=== PATIENT | female | born 1995 | race Caucasian/White ===

== ENCOUNTER 2017-01-21 21:22 | Emergency (ER) | payer OTHER ==
[~2017-01-21] VITALS: Ht 154.9 cm; Wt 95.3 kg
[~2017-01-21 21:22] MED LIST: BACTRIM DS 8001 TA1 PO; BENTYL10 MG PO; CARAFATE1 G1 PO; DEPO SHOT; DEPO-PROVER150 MG/M2 IM; FLAGYL500 MG PO; HYDROCODONE BIT1 T11 PO; MACROBID100 M1 PO; MOTRIN400 MG PO; NAPROSYN500 MG PO; TOPCARE OMEPRAZ20 MG PO; ULTRAM50 MG PO; VICODIN 5/500 505 MG PO; ZANTAC 150150 MG PO; ZANTAC150 MG PO; ZOFRAN ODT4 MG SL; ZOFRAN4 MG PO
[2017-01-21 22:05] LABS: HEMATOCRIT 38.3 % (37.0-47.0); HEMOGLOBIN 12.7 g/dl (12.0-16.0); LYMPH # 0.9 10*3/uL (1.3-4.4); LYMPH % 18.1 % (27.0-41.0); MEAN CELL VOLUME 79.1 fl (81.0-99.0); MEAN CORPUSCULAR HGB 26.2 pg (27.0-31.0); MEAN CORPUSCULAR HGB CONC 33.2 g/dl (33.0-37.0); MEAN PLATELET VOLUME 10.1 fl (9.6-12.3); MONO # 0.4 10*3/uL (0.1-1.0); NEUT # 3.8 10*3/uL (2.3-7.9); NEUT % 73.9 % (47.0-73.0); PLATELET COUNT AUTOMATED 217 10*3/uL (130-400); RED BLOOD COUNT 4.84 10*6/uL (4.10-5.10); RED CELL DISTRI WIDTH 14.8 % (0-14.5); WHITE BLOOD COUNT 5.1 10*3/uL (4.8-10.8)
[2017-01-21 22:10] LABS: BILIRUBIN NEGATIVE (NEGATIVE); BLOOD NEGATIVE (NEGATIVE); CLARITY CLEAR (CLEAR); COLOR YELLOW (YELLOW); GLUCOSE NEGATIVE (NEGATIVE); KETONE NEGATIVE (NEGATIVE); LEUKO ESTERASE NEGATIVE (NEGATIVE); NITRITE NEGATIVE (NEGATIVE); PH 5.5 (5.0-9.0); PROTEIN NEGATIVE (NEGATIVE); UROBILINOGEN 0.2 E.U./dl (0.2-1.0)
[2017-01-21 22:19] LABS: BUN 8 mg/dl (7-24); CARBON DIOXIDE 22 mmol/L (21-32); CHLORIDE 106 mmol/L (98-107); EST GLOM FILT AFRICAN AMERICAN > 60 ml/min; GLUCOSE 95 mg/dL (65-99); POTASSIUM 3.8 mmol/L (3.5-5.1); SODIUM 140 mmol/L (136-145)
[2017-01-21 22:24] LABS: B-hCG (QUALITATIVE) NEGATIVE (NEGATIVE)
[2017-01-21 22:28] LABS: URINE REFLEX COMMENT NO (NO)
[2017-01-22] MEDS ORDERED: LOMOTIL 0.025 M1 TA1 PO (00:06)
[2017-01-22] MEDS ORDERED: ZOFRAN ODT4 MG SL (00:06)
== END 2017-01-22 00:44 | disposition home or self-care (01) ==
LOC: ED 21:22
PROVIDERS: Emergency Medicine Emergency Medical Services
DX: K52.9 Noninfective gastroenteritis and colitis, unspecified (principal); K21.9 Gastro-esophageal reflux disease without esophagitis

== ENCOUNTER 2019-11-08 23:41 | Emergency (ER) | payer OTHER ==
[~2019-11-08 23:41] MED LIST changes: +LOMOTIL 0.025 M1 TA1 PO
== END 2019-11-09 00:08 | disposition left against medical advice (07) ==
LOC: ED 23:41
DX: R51 Headache (principal); R11.10 Vomiting, unspecified; Z53.21 Procedure and treatment not carried out due to patient leaving prior to being seen by health care provider

== ENCOUNTER 2021-04-28 23:51 | Emergency (ER) | payer OTHER ==
[~2021-04-28] VITALS: Ht 157.4 cm; Wt 108.9 kg
[2021-04-29] MEDS ORDERED: AMOXICILLIN500 M2 PO (01:25)
== END 2021-04-29 01:54 | disposition home or self-care (01) ==
LOC: ED 23:51
DX: K08.89 Other specified disorders of teeth and supporting structures (principal); K21.9 Gastro-esophageal reflux disease without esophagitis; Z79.899 Other long term (current) drug therapy; Z90.49 Acquired absence of other specified parts of digestive tract; Z98.890 Other specified postprocedural states

== ENCOUNTER 2024-11-19 17:10 | Emergency (ER) | payer OTHER ==
[~2024-11-19] VITALS: Ht 157.4 cm; Wt 95.3 kg
[~2024-11-19 17:10] MED LIST changes: +AMOXICILLIN500 M2 PO
[2024-11-19] MEDS ORDERED: Acetaminophen/Hydrocodone 5 MG/325 MG TABLET PO ONE (19:10)
[2024-11-19] MEDS ORDERED: METHOCARBAMOL 500 MG TAB PO ONE (19:10)
[2024-11-19] MEDS ORDERED: NAPROSYN500 MG PO (19:58)
[2024-11-19] MEDS ORDERED: METHOCARBAMOL500 M1 PO (19:58)
== END 2024-11-19 20:09 | disposition home or self-care (01) ==
LOC: ED 17:10
DX: S16.1XXA Strain of muscle, fascia and tendon at neck level, initial encounter (principal); M25.552 Pain in left hip; Z96.22 Myringotomy tube(s) status; Z90.49 Acquired absence of other specified parts of digestive tract; V49.49XA Driver injured in collision with other motor vehicles in traffic accident, initial encounter; Y93.I9 Activity, other involving external motion; Y92.488 Other paved roadways as the place of occurrence of the external cause; Y99.8 Other external cause status

== ENCOUNTER 2025-02-24 20:51 | Emergency (ER) | payer OTHER ==
[~2025-02-24] VITALS: Ht 157.4 cm; Wt 95.3 kg
[~2025-02-24 20:51] MED LIST changes: +METHOCARBAMOL500 M1 PO
[2025-02-24 22:00] LABS: BASO % 0.2 % (0.0-1.0); EOS % 0.7 % (1.0-4.0); HEMATOCRIT 37.2 % (37.0-47.0); MEAN CELL VOLUME 76.5 fl (81.0-99.0); MEAN CORPUSCULAR HGB 23.5 pg (27.0-31.0); MEAN CORPUSCULAR HGB CONC 30.6 g/dl (33.0-37.0); MEAN PLATELET VOLUME 9.6 fl (9.6-12.3); MONO # 0.4 10*3/uL (0.1-1.0); MONO % 6.7 % (3.0-9.0); NEUT # 3.4 10*3/uL (2.3-7.9); NEUT % 60.9 % (47.0-73.0); PLATELET COUNT AUTOMATED 275 10*3/uL (130-400); RED BLOOD COUNT 4.86 10*6/uL (4.10-5.10); RED CELL DISTRI WIDTH 16.3 % (0-14.5); WHITE BLOOD COUNT 5.6 10*3/uL (4.8-10.8)
[2025-02-24 22:17] LABS: BUN 12 mg/dl (9-23); CHLORIDE 108 mmol/L (98-107); POTASSIUM 3.7 mmol/L (3.4-5.1)
[2025-02-24] MEDS ORDERED: Ketorolac Tromethamine 60 MG/2 ML VIAL IM ONE (22:45)
[2025-02-24] MEDS ORDERED: MELOXICAM15 MG PO (22:50)
== END 2025-02-24 23:02 | disposition home or self-care (01) ==
LOC: ED 20:51
PROVIDERS: Internal Medicine
DX: M94.0 Chondrocostal junction syndrome [Tietze] (principal); F41.9 Anxiety disorder, unspecified

== ENCOUNTER 2025-09-12 09:49 | Emergency (ER) | payer OTHER ==
[~2025-09-12] VITALS: Ht 157.4 cm; Wt 97.5 kg
[~2025-09-12 09:49] MED LIST changes: +MELOXICAM15 MG PO
[2025-09-12] MEDS ORDERED: Dicyclomine Hydrochloride 20 MG/10 ML OSYR PO STA ×2 (11:32→12:17)
[2025-09-12] MEDS ORDERED: MG-AL HYDROXIDE/SIMETICONE 30 ML UDC PO STA ×2 (11:32→12:17)
[2025-09-12] MEDS ORDERED: LORazepam 0.5 MG TAB PO ONE (11:35)
[2025-09-12 11:56] LABS: BASO # 0.0 10*3/uL (0.0-0.1); BASO % 0.0 % (0.0-1.0); EOS # 0.0 10*3/uL (0.0-0.4); EOS % 0.8 % (1.0-4.0); MEAN CELL VOLUME 78.0 fl (81.0-99.0); MEAN CORPUSCULAR HGB 24.1 pg (27.0-31.0); MEAN PLATELET VOLUME 9.6 fl (9.6-12.3); MONO # 0.2 10*3/uL (0.1-1.0); MONO % 5.7 % (3.0-9.0); NEUT # 2.3 10*3/uL (2.3-7.9); NEUT % 63.0 % (47.0-73.0); NUCLEATED RED BLOOD CELL 0.0 % (0.0-0.0); NUCLEATED RED BLOOD CELL 0.0 10*3/uL (0.0-0.0); PLATELET COUNT AUTOMATED 245 10*3/uL (130-400); RED CELL DISTRI WIDTH 15.8 % (0-14.5)
[2025-09-12] MEDS ORDERED: LORazepam 0.5 MG TAB ONE (12:29)
[2025-09-12 12:30] LABS: BUN 6 mg/dl (9-23)
[2025-09-12 12:33] LABS: BILIRUBIN Negative (Negative); BLOOD Trace-Lysed (Negative); CLARITY Clear (Clear); COLOR Yellow (Yellow); KETONE Negative (Negative); LEUKO ESTERASE 2+ (Negative); NITRITE Negative (Negative); PH 7.0 (4.5-8.0); SPECIFIC GRAVITY 1.010 (1.001-1.030); UROBILINOGEN 0.2 E.U./dl (0.0-1.0)
[2025-09-12 12:43] LABS: BACTERIA 1+
[2025-09-12] MEDS ORDERED: MACROBID100 M1 PO (13:18)
[2025-09-12] MEDS ORDERED: PRILOSEC20 M1 PO (13:18)
== END 2025-09-12 13:23 | disposition home or self-care (01) ==
LOC: ED 09:49
PROVIDERS: Nurse Practitioner Family
DX: S46.912A Strain of unspecified muscle, fascia and tendon at shoulder and upper arm level, left arm, initial encounter (principal); F41.9 Anxiety disorder, unspecified; K21.9 Gastro-esophageal reflux disease without esophagitis; N39.0 Urinary tract infection, site not specified; R31.9 Hematuria, unspecified; X58.XXXA Exposure to other specified factors, initial encounter; Y93.89 Activity, other specified; Y92.89 Other specified places as the place of occurrence of the external cause; Y99.8 Other external cause status